=== PATIENT | female | born 1970 | race Caucasian/White ===

== ENCOUNTER → 2019-11-22 | Outpatient (CLI) | payer OTHER ==
[~2019-11-22] MED LIST: ACEBUTCAFT PO; ACET500 PO; CIPR500 PO; Cleocin HCl300 MG PO; DICY20 PO; GABA300; HYDACE5; HYDACE5 PO; HYDACE5325; Humalog100 UNIT/1; INSLI100I; INSULANI; INSULANPEN SC; INSULIN; IRON150C PO; NAPR500; NAPR550 PO; OXYACE5T PO; PROM25 PO; RXTRAM50 PO; SULTRIDS PO; SUMA25 PO; TRAM50 PO
[2019-11-22 20:13] LABS: Microalb/Creat Ratio UR, Rand 10.684 mg/g (0.000-30.000); Microalbumin, Random Urine 20.3 mg/L (0.000-20.000)
== END | disposition home or self-care (01) ==
LOC: OLS 13:50 → LAB SHORT 13:50
PROVIDERS: Physician Assistant
DX: E10.9 Type 1 diabetes mellitus without complications (principal)
CPT/HCPCS: 82043; 82570

== ENCOUNTER → 2020-01-02 | Outpatient (CLI) | payer OTHER | END | disposition home or self-care (01) | LOC: LAB SHORT 19:35 → LAB 19:35 | DX: N39.0 Urinary tract infection, site not specified (principal) | CPT/HCPCS: 87077; 87086; 87186 ==

== ENCOUNTER → 2020-01-19 | Outpatient (CLI) | payer OTHER | END | disposition home or self-care (01) | LOC: LAB SHORT 12:24 → LAB 12:24 | DX: N30.00 Acute cystitis without hematuria (principal) | CPT/HCPCS: 87077; 87086; 87186 ==

== ENCOUNTER 2020-02-05 18:51 | Emergency (ER) | payer OTHER ==
[~2020-02-05] VITALS: Ht 167.6 cm; Wt 62.1 kg
[2020-02-05] MEDS ORDERED: CRUTCH4 XX (21:04)
== END 2020-02-05 21:25 | disposition home or self-care (01) ==
LOC: ER 18:51
DX: S93.401A Sprain of unspecified ligament of right ankle, initial encounter (principal); Z88.0 Allergy status to penicillin; Z88.1 Allergy status to other antibiotic agents; Z88.8 Allergy status to other drugs, medicaments and biological substances; Z79.899 Other long term (current) drug therapy; E10.9 Type 1 diabetes mellitus without complications; F17.210 Nicotine dependence, cigarettes, uncomplicated; X58.XXXA Exposure to other specified factors, initial encounter
CPT/HCPCS: 73610; 99283-25

== ENCOUNTER 2020-06-29 10:15 | Emergency (ER) | payer OTHER ==
[~2020-06-29] VITALS: Ht 167.6 cm; Wt 68.0 kg
[~2020-06-29 10:15] MED LIST changes: +CRUTCH4 XX
== END 2020-06-29 13:16 | disposition home or self-care (01) ==
LOC: ER 10:15
DX: S61.212A Laceration without foreign body of right middle finger without damage to nail, initial encounter (principal); E10.9 Type 1 diabetes mellitus without complications; F17.210 Nicotine dependence, cigarettes, uncomplicated; Z88.0 Allergy status to penicillin; Z88.8 Allergy status to other drugs, medicaments and biological substances; Z23 Encounter for immunization; W45.8XXA Other foreign body or object entering through skin, initial encounter
CPT/HCPCS: 12001; 90471; 90714; 99282-25

== ENCOUNTER 2020-07-11 17:02 | Emergency (ER) | payer OTHER ==
[~2020-07-11] VITALS: Ht 167.6 cm; Wt 64.4 kg
[2020-07-11] MEDS ORDERED: KEFLEX500 MG PO (17:16)
== END 2020-07-11 17:21 | disposition home or self-care (01) ==
LOC: ER 17:02
DX: S61.211D Laceration without foreign body of left index finger without damage to nail, subsequent encounter (principal); L03.012 Cellulitis of left finger; E10.9 Type 1 diabetes mellitus without complications; F17.210 Nicotine dependence, cigarettes, uncomplicated; Z88.0 Allergy status to penicillin; Z88.8 Allergy status to other drugs, medicaments and biological substances; X58.XXXD Exposure to other specified factors, subsequent encounter
CPT/HCPCS: 99281

== ENCOUNTER 2020-08-31 11:22 | Day surgery (SDC) | payer OTHER ==
[~2020-08-31] VITALS: Ht 167.6 cm; Wt 63.6 kg
[~2020-08-31 11:22] MED LIST changes: +KEFLEX500 MG PO
--- NOTE | 2020-08-31 12:10 | NUR ---
08/31/20 1210 Kristina Calixto 1 TRY RIGHT HAND NO FLASH 2 TRY RIGHT HAND 2 TRY RIGHT UPPER ARM
--- NOTE | 2020-08-31 14:17 | NUR ---
08/31/20 1417 Rica Arteaga V PT REQUESTED TO HAVE HER CBG CHECKED SO SHE COULD RECALIBRATE HER PUMP. DR. CARDOZO GAVE A VERBAL ORDER TO GO AHEAD WITH CHECKING HER CBG.
== END 2020-08-31 14:20 | disposition home or self-care (01) ==
LOC: ORSCSDS 11:22
PROVIDERS: Internal Medicine Gastroenterology
PROC: 0DBP8ZX Excision of Rectum, Via Natural or Artificial Opening Endoscopic, Diagnostic (ICD-10-PCS; principal; 2020-08-31 12:45)
PROC: 0DB98ZX Excision of Duodenum, Via Natural or Artificial Opening Endoscopic, Diagnostic (ICD-10-PCS; principal; 2020-08-31 12:45)
PROC: 0DBK8ZX Excision of Ascending Colon, Via Natural or Artificial Opening Endoscopic, Diagnostic (ICD-10-PCS; principal; 2020-08-31 12:45)
PROC: 0DB68ZX Excision of Stomach, Via Natural or Artificial Opening Endoscopic, Diagnostic (ICD-10-PCS; principal; 2020-08-31 12:45)
DX: D50.9 Iron deficiency anemia, unspecified (principal); K29.70 Gastritis, unspecified, without bleeding; K44.9 Diaphragmatic hernia without obstruction or gangrene; K20.90 Esophagitis, unspecified without bleeding; D12.2 Benign neoplasm of ascending colon; K64.8 Other hemorrhoids; E11.9 Type 2 diabetes mellitus without complications; Z79.4 Long term (current) use of insulin; Z79.899 Other long term (current) drug therapy; F17.210 Nicotine dependence, cigarettes, uncomplicated
CPT/HCPCS: 82947; 88305; 88342; J2704; J7120

== ENCOUNTER 2021-03-18 10:58 | Inpatient (IN) | payer OTHER ==
[~2021-03-18] VITALS: Ht 167.6 cm; Wt 69.1 kg
[2021-03-18 11:25] LABS: Base Excess Venous -26.2 mmol/L; Bicarbonate Venous 7.8 mmol/L (24.0-30.0); PCO2 Venous 22.2 mmHg (38-42); pH Blood Venous 6.99 (7.34-7.37)
[2021-03-18 11:28] LABS: BASOPHILS ABSOLUTE AUTO 0.21 K/mm3 (0.00-0.23); BASOPHILS PERCENT AUTO 1 % (0-2); EOSINOPHILS ABSOLUTE AUTO 0.02 K/mm3 (0.00-0.68); EOSINOPHILS PERCENT AUTO 0 % (0-6); Hematocrit 38.7 % (33.0-51.0); Hemoglobin 12.8 g/dL (11.5-16.0); IMMATURE GRAN ABSOLUTE AUTO 0.96 K/mm3 (0.00-0.10); IMMATURE GRAN PERCENT AUTO 3 % (0-1); LYMPHOCYTES ABSOLUTE AUTO 2.41 K/mm3 (0.84-5.20); LYMPHOCYTES PERCENT AUTO 9 % (21-46); MONOCYTES ABSOLUTE AUTO 2.01 K/mm3 (0.16-1.47); MONOCYTES PERCENT AUTO 7 % (4-13); Mean Corpuscular HGB 32.3 pg (26.0-34.0); Mean Corpuscular HGB Conc 33.1 g/dL (31.5-36.5); Mean Corpuscular Volume 98 fL (80-100); Mean Platelet Volume 10.6 fL (9.1-12.4); NEUTROPHILS ABSOLUTE AUTO 22.25 K/mm3 (1.96-9.15); NEUTROPHILS PERCENT AUTO 80 % (41-73); Platelet Count 279 K/mm3 (150-400); RDW Coefficient Variation 12.1 % (11.7-14.2); RDW Standard Deviation 43.7 fL (35.1-46.3); Red Blood Cell Count 3.96 M/mm3 (3.80-5.20); White Blood Cell Count 27.86 K/mm3 (4.00-11.30)
[2021-03-18] MEDS ORDERED: INSULANI (11:29)
[2021-03-18] MEDS ORDERED: NOVOLOG100 UNIT/2 SQ (11:29)
[2021-03-18 11:57] LABS: Magnesium, Blood 2.4 mg/dL (1.6-2.4); Phosphorus, Blood 7.3 mg/dL (2.5-4.9)
[2021-03-18 12:15] LABS: Albumin/Globulin Ratio 1.4 (0.8-1.8); Bun/Creatinine Ratio 27.9 (12.0-20.0); Calcium, Blood 9.2 mg/dL (8.5-10.1); Creatinine, Blood 1.11 mg/dL (0.40-1.00); Globulin, Blood 2.9 g/dL (2.2-4.0); Potassium, Blood 5.6 mmol/L (3.5-5.5); Total Protein, Blood 6.9 g/dL (6.4-8.2)
[2021-03-18] MEDS ORDERED: HUMALOG100 UNIT/1 (12:23)
[2021-03-18 14:53] LABS: Glucose, Blood 617 mg/dL (70-99)
--- NOTE | 2021-03-18 15:35 | NUR ---
Provider Call- MAP 50's YULISSA Shepherd called and updated on pts MAPs. New orders recieved to start 1 L bolus of NS and VBG. Will start bolus.
--- NOTE | 2021-03-18 15:39 | NUR ---
New admit ER to ICU 1 Pt admitted for DKA. On insulin GTT @ 8 u/hr. A/O to location, event, and following directions, drowsy at times. Able to turn self in bed, transfered with three persmission assitance from ED bed to ICU bed. States being cold, warm blankets provided. Pt hypotensive, see previous note. Recieved critical results of cbg 617 from lab, going in correct direction. Sinus tach. Pts aunt at bedside, Vi, phone number provided as she is the main family contact. Call light within reach.
[2021-03-18 15:51] LABS: Bun/Creatinine Ratio 26.7 (12.0-20.0); Calcium, Blood 7.9 mg/dL (8.5-10.1); Creatinine, Blood 1.05 mg/dL (0.40-1.00); Potassium, Blood 4.6 mmol/L (3.5-5.5)
[2021-03-18 17:58] LABS: Source, Urine Clean Catch
[2021-03-18 18:04] LABS: Appearance, Urine Clear (Clear); Bilirubin, Urine Neg (Neg); Blood, Urine 2+ (Neg); Color, Urine Yellow (P-Yellow); Glucose Qualitative, Urine 4+ (Neg); Ketones, Urine 4+ (Neg); Leukocyte Esterase, Urine Neg (Neg); Nitrite, Urine Neg (Neg); Protein, Urine 2+ (Neg); Urobilinogen, Urine NORM (Normal)
[2021-03-18 18:10] LABS: Base Excess Venous -23.1 mmol/L; Bicarbonate Venous 8.9 mmol/L (24.0-30.0); PCO2 Venous 32.3 mmHg (38-42)
[2021-03-18 18:29] LABS: Red Blood Cells, Urine Rare /hpf (0-2); Squamous Epithelial Cells Rare /hpf (Few); White Blood Cells, Urine 0-2 /hpf (0-5)
[2021-03-18 18:30] LABS: Bacteria Few /hpf
--- NOTE | 2021-03-18 19:08 | NUR ---
Shift Summary Pt continued to be hypotensive, YULISSA Shepherd calld and recieved new orders, see emar and orders. Dr. Ayala consulted, provider made aware in person. Pt started on Levophed GTT, see flow sheet. Right AC IV not patent and attempted two peripheral IV's. Charge nurse Monik made aware and powerglide placed by charge nurse. Ok per charge to infuse Levophed via powerglide. Will let nightshift know to attempt another IV. Insulin GTT infusing, see flow sheet. Pt bladder scanned and floey placed per provider, tolerated well. NSR. See vital sign flow sheet. Aunt, Vi at bedside after transfer from ER. Aunt states she will update everyone in the family. Spoke to patient mother and updated on care being provided as well.
--- NOTE | 2021-03-18 19:13 | NUR ---
Update- Pt sleeping but easily awakens. Continues to be A/O X 4. Able to turn self in bed and remains on RA. SpO2 > 90%.
--- NOTE | 2021-03-18 19:27 | NUR ---
Spoke to daughter -ETOH Spoke to daughter, Tatum via phone. Daughter states pt has been drinking hard ETOH and is considered. Will let provider know. Updated on current care being provided. Pt gave permission to speak to daughter. Currently pt drowsy and sleeping. Will let nightshift know. [phone] Jason Winn
[2021-03-18 19:58] LABS: Anion Gap 9 mmol/L (6-16); Blood Urea Nitrogen 23 mg/dL (8-24); Bun/Creatinine Ratio 29.5 (12.0-20.0); CO2, Blood 14 mmol/L (21-32); Calcium, Blood 7.5 mg/dL (8.5-10.1); Chloride, Blood 112 mmol/L (98-108); Creatinine, Blood 0.78 mg/dL (0.40-1.00); Glomerular Filtration Rate >60 (60-); Glucose, Blood 272 mg/dL (70-99); Sodium, Blood 135 mmol/L (136-145)
--- NOTE | 2021-03-18 21:06 | NUR ---
TR BAND RIGHT WRIST, 1ML REMOVED, EVIDENCE OF PREVIOUS LEAKING, NONE AT THIS TIME.
--- NOTE | 2021-03-18 23:25 | NUR ---
PT REMAINS VERY LETHARGIC, ANSWERS BRIEFLY AND FOLLOWS COMMANDS, BUT DOESN'T OPEN HER EYES OR SPEAK OUT. SHE DENIES HEADACHE, N/V, STOMACH ACHE. D5NS IS INFUSING @ 200ML/HR, INSULIN @ 4U/HR. SUGARS REMAINING UNDER 250. HOGUE DRAINING YELLOW RETURN, NO VISIBLE SEDIMENT. LEFT FOREARM SITE CONTINUES WITH INSULIN AND D5NS AND RIGHT PG WITH LEVO.
[2021-03-18 23:46] LABS: Anion Gap 8 mmol/L (6-16); Blood Urea Nitrogen 20 mg/dL (8-24); CO2, Blood 16 mmol/L (21-32); Chloride, Blood 112 mmol/L (98-108); Creatinine, Blood 0.69 mg/dL (0.40-1.00); Glomerular Filtration Rate >60 (60-); Glucose, Blood 244 mg/dL (70-99); Potassium, Blood 3.9 mmol/L (3.5-5.5); Sodium, Blood 136 mmol/L (136-145)
--- NOTE | 2021-03-19 00:38 | NUR ---
CHAIM WOKE UP, TALKING A BIT MORE, DENIES GALLO,N/V,ABD PAIN, BLURRED VISION. STATES SHE IS FEELING BETTER. STATES SHE FEELS THAT SHE HAS TO "PEE". REMINDED OF HER CATHETER AND HOW IT CAN FEEL THAT WAY. SHE STATES HER BLOOD PRESSURE NORMALLY RUNS IN THE 110'S/50'S.
[2021-03-19 06:03] LABS: Anion Gap 7 mmol/L (6-16); Blood Urea Nitrogen 18 mg/dL (8-24); CO2, Blood 17 mmol/L (21-32); Chloride, Blood 113 mmol/L (98-108); Creatinine, Blood 0.69 mg/dL (0.40-1.00); Glomerular Filtration Rate >60 (60-); Glucose, Blood 210 mg/dL (70-99); Potassium, Blood 3.6 mmol/L (3.5-5.5); Sodium, Blood 137 mmol/L (136-145)
--- NOTE | 2021-03-19 06:26 | NUR ---
SUMMARY: CHAIM SLEPT THROUGH THE NIGHT. SHE WOULD AWAKEN AND CONVERSE MORE THROUGHOUT THE NIGHT. SHE ADMITTED THAT SHE WAS DRINKING ON THURSDAY DURING THE DAY, THAT HER SUGARS WERE OK IN THE MORNING AND THEN BEGAN CLIMBING LATER. HER INSULIN GTT IS AT 4U/HR, LEVOPHED @ 9MCG, D5NS @ 200ML/HR. HOGUE TO GRAVITY DRAINAGE, LESS THAN 600ML OUT THIS SHIFT. SHE STATES THAT OVERALL SHE IS FEELING BETTER THAN SHE DID, BUT STILL NOT GOOD. SHE DENIES HEADACHE, NAUSEA/VOMITING, PAIN, BLURRY VISION. SHE CONTINUES TO BE SLEEPY BUT IS MORE ENGAGING WITH STAFF. SHE DENIES ANY NEEDS AT THIS TIME. CONTINUES NPO, CBG @ 0600 161.
[2021-03-19 06:37] LABS: Calcium, Blood 7.2 mg/dL (8.5-10.1)
[2021-03-19 06:55] LABS: BASOPHILS ABSOLUTE AUTO 0.06 K/mm3 (0.00-0.23); BASOPHILS PERCENT AUTO 0 % (0-2); EOSINOPHILS ABSOLUTE AUTO 0.03 K/mm3 (0.00-0.68); EOSINOPHILS PERCENT AUTO 0 % (0-6); Hematocrit 32.5 % (33.0-51.0); Hemoglobin 11.3 g/dL (11.5-16.0); IMMATURE GRAN ABSOLUTE AUTO 0.26 K/mm3 (0.00-0.10); IMMATURE GRAN PERCENT AUTO 1 % (0-1); LYMPHOCYTES ABSOLUTE AUTO 2.81 K/mm3 (0.84-5.20); LYMPHOCYTES PERCENT AUTO 11 % (21-46); MONOCYTES ABSOLUTE AUTO 1.81 K/mm3 (0.16-1.47); MONOCYTES PERCENT AUTO 7 % (4-13); Mean Corpuscular HGB 31.5 pg (26.0-34.0); Mean Corpuscular HGB Conc 34.8 g/dL (31.5-36.5); Mean Platelet Volume 9.4 fL (9.1-12.4); NEUTROPHILS ABSOLUTE AUTO 21.02 K/mm3 (1.96-9.15); NEUTROPHILS PERCENT AUTO 81 % (41-73); Platelet Count 311 K/mm3 (150-400); RDW Coefficient Variation 12.2 % (11.7-14.2); RDW Standard Deviation 40.4 fL (35.1-46.3); Red Blood Cell Count 3.59 M/mm3 (3.80-5.20); White Blood Cell Count 25.99 K/mm3 (4.00-11.30)
[2021-03-19 06:56] LABS: Mean Corpuscular Volume 91 fL (80-100)
--- NOTE | 2021-03-19 07:45 | NUR ---
PT RESTING IN BED. A/OX4, DENIES PAIN, N/V, AND SOB. ON LEVOPHED GTT THAT IS TITRATING DOWN AND INSULIN GTT. NEGATIVE CIWA. NO COMPLAINTS.
[2021-03-19 08:49] LABS: Anion Gap 5 mmol/L (6-16); Blood Urea Nitrogen 15 mg/dL (8-24); Bun/Creatinine Ratio 23.1 (12.0-20.0); CO2, Blood 19 mmol/L (21-32); Calcium, Blood 7.3 mg/dL (8.5-10.1); Chloride, Blood 114 mmol/L (98-108); Creatinine, Blood 0.65 mg/dL (0.40-1.00); Glomerular Filtration Rate >60 (60-); Glucose, Blood 155 mg/dL (70-99); Potassium, Blood 3.6 mmol/L (3.5-5.5); Sodium, Blood 138 mmol/L (136-145)
[2021-03-19] MEDS ORDERED: ESTA1 PO (09:43)
[2021-03-19] MEDS ORDERED: ATOR40TA PO (09:45)
[2021-03-19] MEDS ORDERED: LISI5 PO (09:46)
[2021-03-19] MEDS ORDERED: MEDR2.5 PO (09:46)
--- NOTE | 2021-03-19 18:26 | NUR ---
SUMMARY PT RESTING IN BED. A/O X4. TITRATED OFF LEVOHED TODAY AND DOING WELL. INSULIN GTT AND D5 NS WAS STOPPED FOR A SHORT TIME THIS AFTERNOON. PT WAS MADE MEDICAL STATUS THEN CBG WENT UP TO 300'S. DR. CRANDALL WANTED PT BACK ON INSULIN GTT UNTIL 1 HOUR AFTER LONG ACTING INSULIN GIVEN. PT IS NOW 89 AND RECEIVED LONG ACTING, SLIDING SCALE, AND 7 UNITS OF NOVOLOG WITH MEAL. PT IS STAYING IN ICU UNTIL AFTER MEAL AND TO MAKE SURE BLOOD SUGAR STABILIZES. PT DID NOT BRING HOME INSULIN PUMP AND NO ONE CAN BRING IT TO HER. PT EATING DINNER NOW, NO SIGN OF DISTRESS.
--- NOTE | 2021-03-19 19:45 | NUR ---
SPOKE TO DR. JURADO, UPDATED ON BLOOD SUGARS, AND INSULIN DOSING ON EMAR, AND NO HS ORDER, OR INSULIN ORDER FOR HS. UPDATED DR. JURADO PT IS A MEDICAL FLOOR STATUS CHANGE. SHE REPORTED SHE WOULD PLACE ORDERS.
--- NOTE | 2021-03-19 20:00 | NUR ---
PT HAS A POOR APPETITE. PT DENIES ANY HEADACHE, CHEST PAIN, SOB, NAUSEA, OR NUMBNESS AND TINGLING. PT IN BED IN HIGH SEMI FOWLERS POSITION, HAS BEEN TALKING ON THE TELEPHONE. UPDATED PT ON Q 2 HOUR CBG CHECKS TONIGHT - PT REPORTS THIS IS "GOOD" SHE WAS CONCERNED HER BLOOD SUGAR MAY DROP WITH THE INSULIN GIVEN TONIGHT. FLUIDS AT BEDSIDE. CALL LIGHT WITHIN REACH. PT TO TRANSFER TO ROOM 328 TONIGHT - UPDATED PT ON THIS.
--- NOTE | 2021-03-19 20:15 | NUR ---
REPORT TO TAYLA JUNIOR.
--- NOTE | 2021-03-19 20:26 | NUR ---
PT TRANSFERRED TO MEDICAL FLOOR WITH VANDANA RANDALL.
--- NOTE | 2021-03-19 20:37 | NUR ---
TRANSFER NOTE HANDOFF RECEIVED FROM DRAWING KILN SUPERVISOR MICHELE. PT ARRIVED TO FLOOR VIA WHEELCHAIR. PERSONAL POSSESSIONS WITH PT. PT ORIENTED TO UNIT
--- NOTE | 2021-03-20 04:01 | NUR ---
SHIFT SUMMARY TRANSFERED FROM ICU THIS SHIFT. ADMITTED FOR DKA. FULL CODE. CHEMBG'S ARE ACHS NOW. CIWA'S Q 4HRS. INSULIN LOW SS. SHE IS A STANDBY ASSIST TO THE BATHROOM. SHE USES AN INSULIN PUMP AT HOME. HOGUE IN PLACE FOR RETENTION. DR CROSS IS PULMONARY CONSULT. SHE IS A&O X4. NO NEW CONCERNS THIS SHIFT.
[2021-03-20 08:19] LABS: BASOPHILS ABSOLUTE AUTO 0.02 K/mm3 (0.00-0.23); BASOPHILS PERCENT AUTO 0 % (0-2); EOSINOPHILS ABSOLUTE AUTO 0.08 K/mm3 (0.00-0.68); EOSINOPHILS PERCENT AUTO 1 % (0-6); Hematocrit 29.7 % (33.0-51.0); Hemoglobin 10.4 g/dL (11.5-16.0); IMMATURE GRAN ABSOLUTE AUTO 0.02 K/mm3 (0.00-0.10); IMMATURE GRAN PERCENT AUTO 0 % (0-1); LYMPHOCYTES PERCENT AUTO 23 % (21-46); MONOCYTES ABSOLUTE AUTO 0.49 K/mm3 (0.16-1.47); MONOCYTES PERCENT AUTO 8 % (4-13); Mean Corpuscular HGB 31.8 pg (26.0-34.0); Mean Corpuscular Volume 91 fL (80-100); Mean Platelet Volume 9.6 fL (9.1-12.4); NEUTROPHILS ABSOLUTE AUTO 4.04 K/mm3 (1.96-9.15); NEUTROPHILS PERCENT AUTO 67 % (41-73); Platelet Count 136 K/mm3 (150-400); RDW Coefficient Variation 12.9 % (11.7-14.2); RDW Standard Deviation 42.6 fL (35.1-46.3); Red Blood Cell Count 3.27 M/mm3 (3.80-5.20); White Blood Cell Count 6.05 K/mm3 (4.00-11.30)
[2021-03-20 08:33] LABS: Anion Gap 5 mmol/L (6-16); Blood Urea Nitrogen 8 mg/dL (8-24); Bun/Creatinine Ratio 15.5 (12.0-20.0); CO2, Blood 23 mmol/L (21-32); Calcium, Blood 7.9 mg/dL (8.5-10.1); Chloride, Blood 114 mmol/L (98-108); Creatinine, Blood 0.52 mg/dL (0.40-1.00); Glomerular Filtration Rate >60 (60-); Glucose, Blood 191 mg/dL (70-99); Potassium, Blood 3.6 mmol/L (3.5-5.5); Sodium, Blood 142 mmol/L (136-145)
[2021-03-20] MEDS ORDERED: FOLI1 PO (14:51)
--- NOTE | 2021-03-20 16:57 | NUR ---
PATIENT DISCHARGED TO HOME ACCOMPANIED BY HER AUNT. IV SALINE LOCK AND POWERGLIDE IV REMOVED WITHOUT INCIDENT. VERBALIZED UNDERSTANDING OF D/C INSTRUCTIONS. OFF UNIT VIA W/C AT 1648. NO BELONGINGS LEFT BEHIND IN ROOM.
== END 2021-03-20 16:50 | disposition home or self-care (01) | DRG 637 ==
LOC: ER 10:58 → ICUW 12:39 → ICUE 12:39 → MEDS 03-19 20:27
PROVIDERS: Emergency Medicine; Family Medicine; Nurse Practitioner Acute Care; ADMIT Internal Medicine
DX: E10.10 Type 1 diabetes mellitus with ketoacidosis without coma (principal); R65.11 Systemic inflammatory response syndrome (SIRS) of non-infectious origin with acute organ dysfunction; G92 Toxic encephalopathy; E87.1 Hypo-osmolality and hyponatremia; N17.9 Acute kidney failure, unspecified; I95.9 Hypotension, unspecified; D72.829 Elevated white blood cell count, unspecified; Z88.0 Allergy status to penicillin; Z88.1 Allergy status to other antibiotic agents; G43.909 Migraine, unspecified, not intractable, without status migrainosus; Z98.890 Other specified postprocedural states; F17.200 Nicotine dependence, unspecified, uncomplicated; Z88.8 Allergy status to other drugs, medicaments and biological substances; Z79.4 Long term (current) use of insulin; E86.0 Dehydration
CPT/HCPCS: 36415; 51702; 71045; 80048; 80053; 81001; 82010; 82803; 82947; 83605; 83735; 84100; 85025; 87040; 87086; 96360; 96361; 99285-25; A9270; C1751; J1650; J1815; J7030; J7042; J7060

== ENCOUNTER 2021-07-07 01:06 | Emergency (ER) | payer OTHER ==
[~2021-07-07] VITALS: Ht 167.6 cm; Wt 63.5 kg
[~2021-07-07 01:06] MED LIST changes: +ATOR40TA PO; +ESTA1 PO; +FOLI1 PO; +HUMALOG100 UNIT/1; +LISI5 PO; +MEDR2.5 PO; +NOVOLOG100 UNIT/2 SQ
[2021-07-07] MEDS ORDERED: Cleocin HCl150 MG PO (03:08)
== END 2021-07-07 03:19 | disposition home or self-care (01) ==
LOC: ER 01:06
DX: S61.230A Puncture wound without foreign body of right index finger without damage to nail, initial encounter (principal); Z88.0 Allergy status to penicillin; Z88.1 Allergy status to other antibiotic agents; Z88.8 Allergy status to other drugs, medicaments and biological substances; Z79.899 Other long term (current) drug therapy; E10.9 Type 1 diabetes mellitus without complications; G43.909 Migraine, unspecified, not intractable, without status migrainosus; F17.210 Nicotine dependence, cigarettes, uncomplicated; W23.0XXA Caught, crushed, jammed, or pinched between moving objects, initial encounter
CPT/HCPCS: 73130; 99283-25; A9270